=== PATIENT | female | born 1995 | race Caucasian/White ===

== ENCOUNTER 2017-10-14 10:54 | Emergency (ER) | payer MEDICAID ==
[~2017-10-14] VITALS: Ht 539.5 cm; Wt 46.0 kg
[2017-10-14 12:11] LABS: BASOPHILS % (AUTO) 0.4 % (0-1); EOSINOPHILS # (AUTO) 0.2 X10'3 (0-0.9); EOSINOPHILS % (AUTO) 2.5 % (0-6); HEMATOCRIT 40.2 % (35.0-45.0); HEMOGLOBIN 13.8 g/dl (12.0-16.0); LYMPHOCYTES # (AUTO) 2.4 X10'3 (1.1-4.8); LYMPHOCYTES % (AUTO) 37.6 % (21-51); MEAN CORPUSCULAR HGB CONC 34.3 % (33.0-36.5); MEAN CORPUSCULAR VOLUME 87.6 FL (78-98); MEAN PLATELET VOLUME 8.6 FL (7.4-10.4); MONOCYTES # (AUTO) 0.3 X10'3 (0-0.9); MONOCYTES % (AUTO) 4.8 % (2-12); NEUTROPHILS # (AUTO) 3.5 X10'3 (1.8-7.7); NEUTROPHILS % (AUTO) 54.7 % (42-75); PLATELET COUNT 299 X10'3 (140-440); RED BLOOD COUNT 4.59 X10'6 (4.20-5.60); RED CELL DISTRIBUTION WIDTH 12.1 % (11.5-14.5); WHITE BLOOD COUNT 6.4 X10'3 (4.5-11.0)
[2017-10-14 12:26] LABS: ALANINE AMINOTRANSFERASE 18 U/L (12-78); ALBUMIN 3.4 G/DL (3.4-5.0); ALBUMIN/GLOBULIN RATIO 0.9 (1.1-1.5); ALKALINE PHOSPHATASE 96 IU/L (46-116); ANION GAP 14 (8-16); ASPARTATE AMINO TRANSFERASE 13 U/L (10-37); BILIRUBIN,TOTAL 0.4 MG/DL (0.1-1.0); BLOOD UREA NITROGEN 16 MG/DL (7-18); BUN/CREATININE RATIO 19.3 (6.6-38.0); CALCIUM 8.7 MG/DL (8.5-10.1); CHLORIDE 95 MMOL/L (99-107); CREATININE 0.83 MG/DL (0.40-0.90); GLUCOSE 383 MG/DL (70-104); POTASSIUM 4.2 MMOL/L (3.5-5.1); SODIUM 133 MMOL/L (135-145); TOTAL CARBON DIOXIDE 24.5 MMOL/L (24-32); TOTAL PROTEIN 7.1 G/DL (6.4-8.2); eGFR 86 ML/MIN
[2017-10-14] MEDS ORDERED: normal saline 1000ML IV soln IVB ONE (12:45)
[2017-10-14] MEDS ORDERED: insulin regular, human 10 units/0.1 ml syringe SQ ONE (14:50)
[2017-10-14 14:58] VITALS: BP 106/70
== END 2017-10-14 15:00 | disposition home or self-care (01) ==
LOC: ER 10:54
DX: E11.65 Type 2 diabetes mellitus with hyperglycemia (principal); Z76.0 Encounter for issue of repeat prescription; Z79.4 Long term (current) use of insulin
CPT/HCPCS: 36415; 80053; 82948; 85025; 96360; 96372; 99284; J1815; J7030; 96361

== ENCOUNTER 2018-05-08 12:35 | Inpatient (IN) | payer MEDICAID ==
[~2018-05-08] VITALS: Ht 152.4 cm; Wt 47.6 kg
[2018-05-08 13:41] LABS: BASOPHILS % (AUTO) 0.4 % (0-1); EOSINOPHILS # (AUTO) 0.1 X10'3 (0-0.9); EOSINOPHILS % (AUTO) 2.1 % (0-6); HEMATOCRIT 40.7 % (35.0-45.0); HEMOGLOBIN 13.4 g/dl (12.0-16.0); LYMPHOCYTES # (AUTO) 1.7 X10'3 (1.1-4.8); LYMPHOCYTES % (AUTO) 28.8 % (21-51); MEAN CORPUSCULAR HEMOGLOBIN 30.2 PG (27.0-31.0); MEAN CORPUSCULAR HGB CONC 32.9 g/dL (33.0-36.5); MEAN CORPUSCULAR VOLUME 91.7 FL (78-98); MEAN PLATELET VOLUME 8.7 FL (7.4-10.4); MONOCYTES # (AUTO) 0.2 X10'3 (0-0.9); MONOCYTES % (AUTO) 3.3 % (2-12); NEUTROPHILS # (AUTO) 3.9 X10'3 (1.8-7.7); NEUTROPHILS % (AUTO) 65.4 % (42-75); PLATELET COUNT 389 X10'3 (140-440); RED BLOOD COUNT 4.44 X10'6 (4.20-5.60); RED CELL DISTRIBUTION WIDTH 13.2 % (11.5-14.5); WHITE BLOOD COUNT 5.9 X10'3 (4.5-11.0)
[2018-05-08 13:55] LABS: ALANINE AMINOTRANSFERASE 26 U/L (12-78); ALBUMIN 3.8 G/DL (3.4-5.0); ALKALINE PHOSPHATASE 139 IU/L (46-116); ANION GAP 20 (8-16); ASPARTATE AMINO TRANSFERASE 20 U/L (10-37); BILIRUBIN,TOTAL 0.9 MG/DL (0.1-1.0); BLOOD UREA NITROGEN 21 MG/DL (7-18); BUN/CREATININE RATIO 15.9 (6.6-38.0); CHLORIDE 85 MMOL/L (99-107); CREATININE 1.32 MG/DL (0.40-0.90); POTASSIUM 5.1 MMOL/L (3.5-5.1); SODIUM 125 MMOL/L (135-145); TOTAL CARBON DIOXIDE 19.8 MMOL/L (24-32); TOTAL PROTEIN 7.5 G/DL (6.4-8.2); eGFR 50 ML/MIN
[2018-05-08 14:07] LABS: GLUCOSE 974 MG/DL (70-104)
[2018-05-08 14:39] LABS: CLARITY,URINE SLIGHTLY CLOUDY (Clear); COLOR,URINE STRAW (Yellow); GLUCOSE, URINE >=1000 mg/dl (Neg); KETONES,URINE >=80 mg/dl (Neg); LEUKOCYTE ESTERASE ,URINE NEGATIVE (Neg); NITRITES, URINE NEGATIVE (Neg); OCCULT BLOOD,URINE NEGATIVE (Neg); PH,URINE 5.5 (4.8-8.0); PROTEIN,URINE NEGATIVE (Neg); UROBILINOGEN,URINE 0.2 E.U/dL (0.2-1.0)
[2018-05-08 14:40] LABS: UA COLLECTION TYPE CLN CATCH MIDSTREAM
[2018-05-08] MEDS ORDERED: insulin regular, human 10 units/0.1 ml syringe IV ONE (15:05)
[2018-05-08] MEDS ORDERED: normal saline 1000ML IV soln IV ONE (15:05)
[2018-05-08] MEDS ORDERED: ondansetron/PF 4mg/2ml inj IV ONE (15:05)
[2018-05-08 15:11] LABS: BACTERIA,URINE 1+ /HPF (Neg); RBC,URINE 0-2 /HPF (0-2); SQUAMOUS EPITHELIAL CELL,UR MANY /LPF (FEW); WBC,URINE 0-4 /HPF (0-4)
[2018-05-08] MEDS: insulin regular, human 100 UNIT in normal saline 100ml IV soln 100 ML IV PRN ×6 (15:22→17:57)
[2018-05-08] MEDS ORDERED: SERT100T PO (15:31)
[2018-05-08] MEDS ORDERED: INSU100I31 SQ (15:32)
[2018-05-08] MEDS ORDERED: INSU100I9 SQ (15:35)
[2018-05-08 16:06] LABS: ABG PCO2 (T) 26.9 mmHg (32.0-45.0); ABG PH (T) 7.229 (7.350-7.450); ABG PO2 (T) 109.6 mmHg (83-108); ALLEN'S TEST Positive; FCOHb 0.3 % (0.5-1.5); FMetHb 0.2 % (0.3-1.12); FO2Hb 96.5 % (94-100); TOTAL HEMOGLOBIN 12.4 G/dl (12.0-16.0)
[2018-05-08] MEDS ORDERED: insulin regular, human vial - multi-dose IV PRN ×2 (16:45→17:15)
--- NOTE | 2018-05-08 16:47 | NUR ---
PT BG READS HIGH, INCREASED INSULIN DRIP TO 10.5 UNITS/HOUR AND GAVE 10 UNIT BOLUS PER PROTOCOL INSULIN ORDER, ALSO VERBAL CONFIRMATION WITH JAE OF THIS INSULIN ADMINISTRATION.
[2018-05-08] MEDS ORDERED: sodium bicarbonate (8.4%) inj. 50 MEQ in dextrose 5% water 500ml 250 ML IV PRN (17:14)
[2018-05-08] MEDS ORDERED: potassium CL 20mEq in D5-1/2NS 1,000 ML IV PRN (17:14)
[2018-05-08] MEDS ORDERED: insulin regular, DKA only 100 UNIT in normal saline 100ml IV soln 99 ML IV SCH ×2 (17:14)
[2018-05-08] MEDS ORDERED: normal saline 1000ml 1,000 ML IV SCH ×2 (17:14)
[2018-05-08] MEDS ORDERED: sodium bicarbonate (8.4%) inj. 100 MEQ in dextrose 5% water 500ml 500 ML IV PRN (17:14)
[2018-05-08] MEDS ORDERED: morphine 4 MG/ML inj SYRINge IV PRN ×2 (17:15)
[2018-05-08] MEDS ORDERED: ondansetron/PF 4mg/2ml inj IV PRN (17:15)
[2018-05-08] MEDS ORDERED: bisacodyl 10mg suppository rectal RC PRN (17:15)
[2018-05-08] MEDS ORDERED: acetaminophen 325mg tablet PO PRN (17:15)
[2018-05-08] MEDS ORDERED: potassium Cl 40MEQ/NS 500ml 500 ML IV PRN ×2 (17:15)
[2018-05-08] MEDS ORDERED: insulin regular, human 10 units/0.1 ml syringe IV PRN (17:15)
[2018-05-08] MEDS ORDERED: magnesium 2GM in 50ml NS 50 ML IV PRN (17:15)
[2018-05-08] MEDS ORDERED: Neutra Phos packet PO PRN (17:15)
[2018-05-08] MEDS ORDERED: sodium phosphate inj. 15 MMOL in dextrose 5%-water 150 ML IV PRN (17:15)
[2018-05-08] MEDS ORDERED: sodium phosphate inj. 30 MMOL in dextrose 5%-water 250 ML IV PRN (17:15)
[2018-05-08] MEDS ORDERED: magnesium 4gm in 100ml NS 100 ML IV PRN (17:15)
[2018-05-08] MEDS ORDERED: potassium Cl 20 mEq SR tablet PO PRN (17:15)
[2018-05-08 17:55] LABS: ALBUMIN 3.1 G/DL (3.4-5.0); ANION GAP 18 (8-16); BLOOD UREA NITROGEN 17 MG/DL (7-18); BUN/CREATININE RATIO 16.2 (6.6-38.0); CALCIUM 7.6 MG/DL (8.5-10.1); CHLORIDE 98 MMOL/L (99-107); CREATININE 1.05 MG/DL (0.40-0.90); GLUCOSE 407 MG/DL (70-104); PHOSPHORUS 2.3 MG/DL (2.3-4.5); POTASSIUM 3.8 MMOL/L (3.5-5.1); SODIUM 134 MMOL/L (135-145); TOTAL CARBON DIOXIDE 17.9 MMOL/L (24-32); eGFR 66 ML/MIN
--- NOTE | 2018-05-08 17:58 | NUR ---
DR RAYA INFORMED OF PT SWOLLEN/PUFFY FACE, AIRWAY PATENT, NO DIFFICULTY SWALLOWING OR BREATHING DR ROWE EVALUATED PT AND ALSO DISCUSSED THIS WITH DR RAYA, DR RAYA INFORMED PT BG 436, VERBAL ORDER FROM DR RAYA TO REDUCE INSULIN IV PUMP TO 6 UNITS/HOUR AND NOT TO GIVE 2000ML NS BOLUS ORDERED.
--- NOTE | 2018-05-08 18:05 | NUR ---
DR RAYA HOSPITALIST AT BEDSIDE FOR EVALUATION AND ADMISSION NOW.
[2018-05-08] MEDS ORDERED: Potassium Cl inj 20 MEQ in normal saline 1000ml 990 ML IV SCH (19:00)
[2018-05-08 19:15] VITALS: BP 108/61
[2018-05-08 19:33] LABS: URINE HCG NEGATIVE (NEG)
[2018-05-08 20:06] LABS: ALBUMIN 3.6 G/DL (3.4-5.0); ANION GAP 13 (8-16); BLOOD UREA NITROGEN 16 MG/DL (7-18); CALCIUM 8.1 MG/DL (8.5-10.1); CHLORIDE 101 MMOL/L (99-107); CREATININE 1.07 MG/DL (0.40-0.90); GLUCOSE 170 MG/DL (70-104); POTASSIUM 3.2 MMOL/L (3.5-5.1); SODIUM 137 MMOL/L (135-145); TOTAL CARBON DIOXIDE 23.2 MMOL/L (24-32); eGFR 64 ML/MIN
[2018-05-08] MEDS ORDERED: dextrose 50%-water 50ml dispensing syringe IV PRN ×2 (20:25)
[2018-05-08] MEDS ORDERED: dextrose ORAL solution 15 GM/59 ML bottle PO PRN ×2 (20:25)
[2018-05-08] MEDS ORDERED: glucagon, human recombinant 1mg kit SUBCUT PRN (20:25)
[2018-05-08] MEDS ORDERED: insulin glargine (Lantus) pen - multi-dose SQ SCH (21:00)
[2018-05-08] MEDS: insulin Lispro (HumaLOG) vial - multi-dose SQ SCH (21:30)
[2018-05-08] MEDS: normal saline 1000ml 1,000 ML IV SCH (21:38)
[2018-05-08] MEDS: potassium Cl 20 mEq SR tablet PO PRN (21:38)
[2018-05-08 23:00] VITALS: BP 95/56
[2018-05-09] MEDS: potassium Cl 20 mEq SR tablet PO PRN (02:03)
[2018-05-09 03:00] VITALS: BP 100/49
[2018-05-09] MEDS: normal saline 1000ml 1,000 ML IV SCH ×2 (05:33→07:47)
[2018-05-09 05:50] LABS: BASOPHILS % (AUTO) 0.5 % (0-1); EOSINOPHILS # (AUTO) 0.2 X10'3 (0-0.9); EOSINOPHILS % (AUTO) 3.1 % (0-6); HEMATOCRIT 33.3 % (35.0-45.0); HEMOGLOBIN 11.1 g/dl (12.0-16.0); LYMPHOCYTES # (AUTO) 3.8 X10'3 (1.1-4.8); LYMPHOCYTES % (AUTO) 49.8 % (21-51); MEAN CORPUSCULAR HGB CONC 33.3 g/dL (33.0-36.5); MEAN CORPUSCULAR VOLUME 90.1 FL (78-98); MEAN PLATELET VOLUME 8.7 FL (7.4-10.4); MONOCYTES # (AUTO) 0.4 X10'3 (0-0.9); NEUTROPHILS # (AUTO) 3.2 X10'3 (1.8-7.7); NEUTROPHILS % (AUTO) 41.6 % (42-75); PLATELET COUNT 331 X10'3 (140-440); RED CELL DISTRIBUTION WIDTH 13.1 % (11.5-14.5); WHITE BLOOD COUNT 7.7 X10'3 (4.5-11.0)
[2018-05-09 06:00] VITALS: BP 127/87
--- NOTE | 2018-05-09 06:06 | NUR ---
Problems reprioritized. Patient report given, questions answered & plan of care reviewed with Dayanara DICKINSON & Luisa RN.
[2018-05-09 06:07] LABS: ALANINE AMINOTRANSFERASE 21 U/L (12-78); ALBUMIN 2.6 G/DL (3.4-5.0); ALKALINE PHOSPHATASE 84 IU/L (46-116); ANION GAP 12 (8-16); ASPARTATE AMINO TRANSFERASE 16 U/L (10-37); BILIRUBIN,TOTAL 0.3 MG/DL (0.1-1.0); BLOOD UREA NITROGEN 21 MG/DL (7-18); BUN/CREATININE RATIO 23.6 (6.6-38.0); CALCIUM 7.4 MG/DL (8.5-10.1); CHLORIDE 102 MMOL/L (99-107); CREATININE 0.89 MG/DL (0.40-0.90); GLUCOSE 322 MG/DL (70-104); MAGNESIUM 1.6 MG/DL (1.5-2.4); PHOSPHORUS 3.7 MG/DL (2.3-4.5); POTASSIUM 4.4 MMOL/L (3.5-5.1); SODIUM 135 MMOL/L (135-145); TOTAL CARBON DIOXIDE 21.5 MMOL/L (24-32); TOTAL PROTEIN 5.3 G/DL (6.4-8.2); eGFR 79 ML/MIN
[2018-05-09 06:34] LABS: HEMOGLOBIN A1C > 14.0 % (4.5-6.2)
--- NOTE | 2018-05-09 06:39 | NUR ---
Patient in room PCU 3020. I have received report from ALOK Covarrubias and had the opportunity to ask questions and assume patient care.
[2018-05-09] MEDS: insulin Lispro (HumaLOG) vial - multi-dose SQ SCH ×3 (07:43→13:20)
[2018-05-09] MEDS ORDERED: K and/or MAG REPLACEMENT MC SCH (08:00)
--- NOTE | 2018-05-09 10:25 | NUR ---
PAGER ID: [phone] MESSAGE: [id number] pt Zee DENICE FSBG increasing this am 330 and 329. Insulin gtt off last night at 2230 with reg coverage 1st per chart. AM labs 0500 showed CO2 21.5 and anion gap 12. Will continue to monitor - Dayanara [id number]
[2018-05-09] MEDS ORDERED: TRAZ-219 PO (11:40)
[2018-05-09] MEDS ORDERED: INSU100I31 SQ (11:40)
[2018-05-09] MEDS ORDERED: LEVO100T9 PO (11:40)
--- NOTE | 2018-05-09 15:35 | NUR ---
DM consult: Pt admit with DKA, A1c >14. Per H&P pt has had DM since 5 y/o and hasn't been checking BG levels for a month and forgot to take HS insulin resulting in BG 974. Attempted visit with pt at bedside for DM ed however pt was already discharged. Addendum: 05/09/18 at [address] Amended: Links added.
--- NOTE | 2018-05-09 15:35 | NUR ---
Home accompanied by Mother. Has all belongings, written instruction for follow-up care, new medication hand-outs, new medications are delivered to the bedside. Blood glucose is controlled on discharge, and this patient has had diabetic education, provided by the physician and nursing staff. Hand-out for healthy diabetic life is provided.
== END 2018-05-09 14:05 | disposition home or self-care (01) | DRG 420 ==
LOC: ER 12:36 → ED HOLD 17:14 → PCU 3S 19:10
PROVIDERS: ADMIT Family Medicine; ATTEND Family Medicine
DX: E10.10 Type 1 diabetes mellitus with ketoacidosis without coma (principal); N17.0 Acute kidney failure with tubular necrosis; E03.9 Hypothyroidism, unspecified; E87.6 Hypokalemia; E86.0 Dehydration; F32.9 Major depressive disorder, single episode, unspecified; Z79.4 Long term (current) use of insulin; Z80.2 Family history of malignant neoplasm of other respiratory and intrathoracic organs; Z91.14 Patient's other noncompliance with medication regimen; Z88.8 Allergy status to other drugs, medicaments and biological substances
CPT/HCPCS: 36415; 36600; 80048; 80053; 81001; 81025; 82009; 82803; 82948; 83036; 83735; 84100; 84443; 85018; 85025; 87070; 99285; G0378; J1815; J2405; J3480; J7030

== ENCOUNTER 2018-12-09 00:49 | Emergency (ER) | payer MEDICAID, OTHER ==
[~2018-12-09] VITALS: Ht 152.4 cm; Wt 44.0 kg
[~2018-12-09 00:49] MED LIST: INSU100I31 SQ; INSU100I9 SQ; LEVO100T9 PO; SERT100T PO; TRAZ-219 PO
[2018-12-09] MEDS ORDERED: normal saline 1000ML IV soln IV ONE (01:00)
[2018-12-09] MEDS ORDERED: insulin regular, human 10 units/0.1 ml syringe IV ONE ×3 (01:00→04:00)
[2018-12-09 01:24] LABS: BASOPHILS # (AUTO) 0.1 X10'3 (0-0.2); EOSINOPHILS # (AUTO) 0.1 X10'3 (0-0.9); EOSINOPHILS % (AUTO) 0.7 % (0-6); HEMOGLOBIN 13.5 g/dl (12.0-16.0); LYMPHOCYTES # (AUTO) 2.6 X10'3 (1.1-4.8); LYMPHOCYTES % (AUTO) 36.3 % (21-51); MEAN CORPUSCULAR HEMOGLOBIN 29.4 PG (27.0-31.0); MEAN CORPUSCULAR VOLUME 88.9 FL (78-98); MEAN PLATELET VOLUME 9.1 FL (7.4-10.4); MONOCYTES # (AUTO) 0.3 X10'3 (0-0.9); MONOCYTES % (AUTO) 3.9 % (2-12); NEUTROPHILS # (AUTO) 4.1 X10'3 (1.8-7.7); NEUTROPHILS % (AUTO) 58.1 % (42-75); PLATELET COUNT 288 X10'3 (140-440); RED BLOOD COUNT 4.61 X10'6 (4.20-5.60); WHITE BLOOD COUNT 7.1 X10'3 (4.5-11.0)
--- NOTE | 2018-12-09 01:32 | NUR ---
Patient resting comfortably on gurney, BG 585 and 10u reg insulin given. Will continue to monitor.
[2018-12-09 01:41] LABS: ALANINE AMINOTRANSFERASE 31 U/L (12-78); ALBUMIN 3.8 G/DL (3.4-5.0); ALBUMIN/GLOBULIN RATIO 1.1 (1.1-1.5); ALKALINE PHOSPHATASE 117 IU/L (46-116); ANION GAP 16 (8-16); ASPARTATE AMINO TRANSFERASE 18 U/L (10-37); BILIRUBIN,TOTAL 0.5 MG/DL (0.1-1.0); BLOOD UREA NITROGEN 21 MG/DL (7-18); BUN/CREATININE RATIO 15.3 (6.6-38.0); CALCIUM 8.8 MG/DL (8.5-10.1); CHLORIDE 96 MMOL/L (99-107); CREATININE 1.37 MG/DL (0.40-0.90); SODIUM 132 MMOL/L (135-145); TOTAL PROTEIN 7.3 G/DL (6.4-8.2); eGFR 48 ML/MIN
[2018-12-09 01:44] LABS: GLUCOSE 711 MG/DL (70-104)
[2018-12-09 01:57] LABS: CLARITY,URINE CLEAR (Clear); COLOR,URINE YELLOW (Yellow); GLUCOSE, URINE >=1000 mg/dl (Neg); KETONES,URINE >=80 mg/dl (Neg); LEUKOCYTE ESTERASE ,URINE NEGATIVE (Neg); NITRITES, URINE NEGATIVE (Neg); OCCULT BLOOD,URINE NEGATIVE (Neg); PROTEIN,URINE NEGATIVE (Neg); UROBILINOGEN,URINE 0.2 E.U/dL (0.2-1.0)
[2018-12-09 01:58] LABS: URINE HCG NEGATIVE (NEG)
[2018-12-09 02:10] LABS: UA COLLECTION TYPE VOIDED
[2018-12-09 02:26] LABS: BACTERIA,URINE NONE SEEN /HPF (Neg); MUCUS STRANDS NONE SEEN /LPF (Neg); RBC,URINE 0-2 /HPF (0-2); SQUAMOUS EPITHELIAL CELL,UR FEW /LPF (FEW); WBC,URINE 0-4 /HPF (0-4)
--- NOTE | 2018-12-09 02:53 | NUR ---
Patient sleeping on gurney, no obvious distress.
[2018-12-09] MEDS ORDERED: SYRI1DIS90 MC (04:01)
[2018-12-09] MEDS ORDERED: LANTUS SQ (04:01)
[2018-12-09 04:12] VITALS: BP 120/73
== END 2018-12-09 04:18 | disposition home or self-care (01) ==
LOC: ER 00:50
DX: E11.65 Type 2 diabetes mellitus with hyperglycemia (principal); Z88.1 Allergy status to other antibiotic agents; Z79.4 Long term (current) use of insulin
CPT/HCPCS: 36415; 80053; 81001; 81025; 82009; 82948; 85025; 96361; 96374; 96376; 99283; J1815; J7030